=== PATIENT | female | born 1945 | race Caucasian/White ===

== ENCOUNTER 2024-01-15 21:14 | Inpatient (IN) | payer OTHER ==
[2024-01-15] MEDS: ALBUTEROL SO4 2.5/IPRATROPIUM 0.5 INH SOL 3 ML VIAL.NEB. NEB ONE (22:27)
[2024-01-15 22:34] LABS: BASO % 0.6 % (0-2.0); EOS % 1.3 % (0-4.5); HEMATOCRIT 37.4 % (32.4-45.2); HEMOGLOBIN 12.7 GM/dL (10.7-15.3); MCH 29.3 pg (25.7-33.7); MCHC 33.8 g/dl (32.0-36.0); MEAN CELL VOLUME 86.6 fl (80-96); MEAN PLT VOLUME 8.3 fl (7.5-11.1); MONO % 2.9 % (3.8-10.2); NEUT % 87.2 % (42.8-82.8); PLATELET COUNT 439 10^3/uL (134-434); RBC 4.31 M/mm3 (3.60-5.2); RDW 14.4 % (11.6-15.6); VENOUS BASE EXCESS 0.1 mmol/L (-2-2); VENOUS O2 SATURATION 94.2 % (70-80); VENOUS PCO2 26.1 mmHg (38-52); VENOUS PH 7.531 (7.310-7.410); WHITE BLOOD COUNT 18.3 K/mm3 (4.0-10.0)
[2024-01-15 22:45] LABS: INR 0.98 (0.83-1.09); PROTHROMBIN TIME (PATIENT) 11.4 SEC (9.7-13.0)
[2024-01-15 22:47] LABS: ACTIVATED PTT 30.6 SECONDS (25.2-36.5)
[2024-01-15 22:53] LABS: POTASSIUM 3.9 mmol/L (3.5-5.1)
[2024-01-15 22:55] LABS: CALCIUM 9.6 mg/dL (8.5-10.1)
[2024-01-15 22:56] LABS: ALBUMIN 3.7 g/dl (3.4-5.0); BLOOD UREA NITROGEN 10.8 mg/dL (7-18)
[2024-01-15 22:59] LABS: CREATININE 1.1 mg/dL (0.55-1.3)
[2024-01-15 23:00] LABS: BILIRUBIN,TOTAL 0.5 mg/dL (0.2-1)
[2024-01-15 23:33] LABS: EPI CELLS 1 /uL (0-25.1); HYALINE CASTS 0 /uL (0-3.1); URINE APPEARANCE CLEAR; URINE BACTERIA 296 /uL (0-1359); URINE BILIRUBIN NEGATIVE (NEGATIVE); URINE COLOR YELLOW; URINE GLUCOSE (UA) NEGATIVE (NEGATIVE); URINE KETONE NEGATIVE (NEGATIVE); URINE LEUK ESTERASE 3+ (NEGATIVE); URINE NITRITE NEGATIVE (NEGATIVE); URINE PROTEIN NEGATIVE (NEGATIVE); URINE RBC 15 /uL (0-23.9); URINE UROBILINOGEN 0.2 mg/dL (0.2-1.0); URINE WBC 148 /uL (0-25.8)
[2024-01-16 00:05] LABS: N-TERMINAL BNP 421.8 pg/ml (5-450)
[2024-01-16] MEDS: CEFTRIAXONE 1 GM in DEXTROSE 5%-WATER - 100 ML IVPB ONE (01:08)
[2024-01-16] MEDS ORDERED: CEFTRIAXONE 1 GM/50 ML BAG ONE (01:10)
[2024-01-16] MEDS ORDERED: QUEtiapine FUMARATE 25 MG TABLET PO PRN (05:01)
[2024-01-16] MEDS: MELATONIN 5 MG TABLETS PO ONE (05:11)
[2024-01-16] MEDS: LORazepam 0.5 MG TABLET PO ONE (05:11)
[2024-01-16 07:51] LABS: BASO % 0.6 % (0-2.0); EOS % 1.2 % (0-4.5); HEMATOCRIT 36.1 % (32.4-45.2); LYMPH % 13.1 % (8-40); MCH 29.1 pg (25.7-33.7); MCHC 33.2 g/dl (32.0-36.0); MEAN CELL VOLUME 87.7 fl (80-96); MEAN PLT VOLUME 8.9 fl (7.5-11.1); MONO % 5.2 % (3.8-10.2); NEUT % 79.9 % (42.8-82.8); PLATELET COUNT 393 10^3/uL (134-434); RBC 4.12 M/mm3 (3.60-5.2); WHITE BLOOD COUNT 11.1 K/mm3 (4.0-10.0)
[2024-01-16 08:08] LABS: POTASSIUM 3.7 mmol/L (3.5-5.1)
[2024-01-16 08:24] LABS: BLOOD UREA NITROGEN 8.8 mg/dL (7-18)
[2024-01-16] MEDS ORDERED: NIFEdipine E.R 60 MG TABLET PO ONE (09:28)
[2024-01-16] MEDS ORDERED: PANTOPRAZOLE 40 MG TABLET PO ONE (09:28)
[2024-01-16] MEDS ORDERED: ESCITALOPRAM OXALATE 10 MG TABLET ONE (09:28)
[2024-01-16] MEDS ORDERED: propRANOLol HCL 10 MG TABLET ONE (09:29)
[2024-01-16] MEDS: NIFEdipine E.R 60 MG TABLET PO SCH (09:34)
[2024-01-16] MEDS: PANTOPRAZOLE 40 MG TABLET PO SCH (09:34)
[2024-01-16] MEDS: ESCITALOPRAM OXALATE 20 MG TABLET PO SCH (09:34)
[2024-01-16] MEDS ORDERED: ALBUTEROL SO4 2.5/IPRATROPIUM 0.5 INH SOL 3 ML VIAL.NEB. NEB PRN (14:05)
[2024-01-16 16:17] VITALS: BMI 21.7
[2024-01-16] MEDS: BUDESONIDE/FORMETEROL FUMARATE 80/4.5 mcg INHALER IH ONE (16:19)
[2024-01-16] MEDS: MELATONIN 5 MG TABLETS PO SCH (22:10)
[2024-01-16] MEDS: SENNOSIDES 8.6MG TABLET (FP) PO SCH (22:10)
[2024-01-16] MEDS: MIRTAZAPINE 15 MG TABLET (FP) PO SCH (22:10)
[2024-01-16] MEDS: BUDESONIDE/FORMETEROL FUMARATE 80/4.5 mcg INHALER IH SCH (23:15)
[2024-01-17] MEDS ORDERED: ESCITALOPRAM OXALATE 10 MG TABLET ONE (08:59)
[2024-01-17] MEDS: CEFTRIAXONE 1 GM in DEXTROSE 5%-WATER - 50 ML IVPB SCH (09:28)
[2024-01-17] MEDS: ACETAMINOPHEN 1000 MG/100 ML BAG IVPB PRN (22:46)
[2024-01-17] MEDS: ACETAMINOPHEN 325 MG TABLET (FP) PO ONE (23:27)
[2024-01-18 09:00] LABS: BASO % 0.9 % (0-2.0); EOS % 4.4 % (0-4.5); HEMATOCRIT 35.7 % (32.4-45.2); HEMOGLOBIN 12.1 GM/dL (10.7-15.3); LYMPH % 22.4 % (8-40); MCH 29.9 pg (25.7-33.7); MCHC 33.9 g/dl (32.0-36.0); MEAN CELL VOLUME 88.2 fl (80-96); MEAN PLT VOLUME 8.6 fl (7.5-11.1); MONO % 4.2 % (3.8-10.2); NEUT % 68.1 % (42.8-82.8); PLATELET COUNT 378 10^3/uL (134-434); RBC 4.05 M/mm3 (3.60-5.2); RDW 14.3 % (11.6-15.6); WHITE BLOOD COUNT 8.5 K/mm3 (4.0-10.0)
[2024-01-18 09:05] LABS: CALCIUM 8.9 mg/dL (8.5-10.1)
[2024-01-18 09:09] LABS: BLOOD UREA NITROGEN 16.9 mg/dL (7-18)
[2024-01-18] MEDS ORDERED: ESCITALOPRAM OXALATE 10 MG TABLET ONE (09:19)
[2024-01-18] MEDS: CEFPODOXIME PROXETIL 100 MG TABLET PO SCH (15:07)
[2024-01-18] MEDS: ACETAMINOPHEN 325 MG TABLET (FP) PO ONE (22:00)
[2024-01-19 08:36] VITALS: RESP 18
[2024-01-19] MEDS ORDERED: ESCITALOPRAM OXALATE 10 MG TABLET ONE (09:23)
[2024-01-20] MEDS ORDERED: ESCITALOPRAM OXALATE 10 MG TABLET ONE (09:45)
[2024-01-20 10:57] LABS: BASO % 0.8 % (0-2.0); EOS % 3.9 % (0-4.5); HEMOGLOBIN 11.4 GM/dL (10.7-15.3); LYMPH % 14.8 % (8-40); MCH 29.5 pg (25.7-33.7); MCHC 33.4 g/dl (32.0-36.0); MEAN CELL VOLUME 88.1 fl (80-96); MEAN PLT VOLUME 8.4 fl (7.5-11.1); MONO % 4.7 % (3.8-10.2); NEUT % 75.8 % (42.8-82.8); PLATELET COUNT 377 10^3/uL (134-434); RBC 3.86 M/mm3 (3.60-5.2); RDW 14.3 % (11.6-15.6); WHITE BLOOD COUNT 8.6 K/mm3 (4.0-10.0)
[2024-01-20 11:33] LABS: POTASSIUM 4.1 mmol/L (3.5-5.1)
[2024-01-20 11:36] LABS: BLOOD UREA NITROGEN 17.6 mg/dL (7-18); CALCIUM 9.3 mg/dL (8.5-10.1)
[2024-01-21 05:42] VITALS: PULSE 60
[2024-01-21] MEDS ORDERED: ESCITALOPRAM OXALATE 10 MG TABLET ONE (10:07)
[2024-01-21 12:51] VITALS: BP 130/60; TEMP 98.1
== END 2024-01-21 14:06 | disposition home or self-care (01) | DRG 191 ==
LOC: JER 21:14 → JERBED 01-16 01:51 → J6S 01-16 14:25
PROVIDERS: ADMIT Internal Medicine; ATTEND Internal Medicine
DX: J44.1 Chronic obstructive pulmonary disease with (acute) exacerbation (principal); N39.0 Urinary tract infection, site not specified; F03.90 Unspecified dementia, unspecified severity, without behavioral disturbance, psychotic disturbance, mood disturbance, and anxiety; I10 Essential (primary) hypertension; F32.A Depression, unspecified; F25.9 Schizoaffective disorder, unspecified; R09.02 Hypoxemia; W18.30XA Fall on same level, unspecified, initial encounter; Y92.098 Other place in other non-institutional residence as the place of occurrence of the external cause; Y99.9 Unspecified external cause status
CPT/HCPCS: 0241U-QW; 36415; 70450-TC; 70486-TC; 71045-TC-FY; 71250-TC; 72125-TC; 80048; 80053; 81003; 82803; 83880; 84484; 85025; 85379; 85610; 85730; 87040; 87086; 87635; 93005; 93010; 97116-GP; 97162-GP; 99285-25; J0131

== ENCOUNTER 2024-10-05 21:02 | Emergency (ER) | payer OTHER ==
[2024-10-05 21:12] VITALS: BP 130/70; PULSE 82; RESP 18; TEMP 97.8; BMI 28.3
[2024-10-05 22:29] LABS: PH,URINE 6.5 (5.0-8.0); URINE APPEARANCE CLOUDY; URINE BILIRUBIN NEGATIVE (NEGATIVE); URINE COLOR YELLOW; URINE GLUCOSE (UA) NEGATIVE (NEGATIVE); URINE KETONE NEGATIVE (NEGATIVE); URINE LEUK ESTERASE 3+ (NEGATIVE); URINE NITRITE NEGATIVE (NEGATIVE); URINE PROTEIN TRACE (NEGATIVE); URINE UROBILINOGEN 0.2 mg/dL (0.2-1.0)
[2024-10-05 22:52] LABS: EPI CELLS 13.4 /uL (0-25.1); HYALINE CASTS 0.13 /uL (0-3.1); URINE BACTERIA 825.8 /uL (0-1359); URINE RBC 38.9 /uL (0-23.9); URINE WBC 1458.9 /uL (0-25.8)
[2024-10-05] MEDS ORDERED: CEPHALEXIN MONOHYDRATE 500 MG CAPSULE (UD) ONE (23:19)
[2024-10-05] MEDS: CEPHALEXIN MONOHYDRATE 500 MG CAPSULE (UD) PO ONE (23:25)
== END 2024-10-06 02:56 | disposition home or self-care (01) ==
LOC: JER 21:02
DX: N39.0 Urinary tract infection, site not specified (principal); R06.02 Shortness of breath; R05.9 Cough, unspecified
CPT/HCPCS: 71046-TC-FY; 81003; 87086; 93005; 93010; 99285-25

== ENCOUNTER 2025-05-18 14:42 | Inpatient (IN) | payer OTHER ==
[2025-05-18] MEDS ORDERED: DIPHTH,PERTUSS(ACELL),TET 0.5 ML DISP.SYRIN IM ONE (15:31)
[2025-05-18] MEDS ORDERED: ACETAMINOPHEN 500 MG TABLET (FP) ONE (15:34)
[2025-05-18] MEDS: DIPHTH,PERTUSS(ACELL),TET 0.5 ML DISP.SYRIN IM ONE (15:38)
[2025-05-18] MEDS: ACETAMINOPHEN 500 MG TABLET (FP) PO ONE (15:40)
[2025-05-18] MEDS ORDERED: BACITRACIN ZINC 15 GM TUBE TOPICAL OINTMENT ONE (15:47)
[2025-05-18 20:07] LABS: HEMATOCRIT 38.3 % (34.1-44.9); MCHC 31.3 g/dl (32.2-35.5); MEAN CELL VOLUME 88.9 fl (79.4-94.8); MEAN PLT VOLUME 10.2 fl (9.4-12.3); PLATELET COUNT 420 x10^3/uL (182-369); RDW 13.7 % (12.4-16.6)
[2025-05-18 20:14] LABS: INR 1.01 (0.83-1.09)
[2025-05-18 20:17] LABS: ACTIVATED PTT 29.2 SECONDS (25.2-36.5)
[2025-05-18 20:55] LABS: POTASSIUM 4.1 mmol/L (3.5-5.1)
[2025-05-18 20:57] LABS: CALCIUM 9.3 mg/dL (8.5-10.1)
[2025-05-18 20:58] LABS: ALBUMIN 3.4 g/dl (3.4-5.0); BLOOD UREA NITROGEN 13.4 mg/dL (7-18)
[2025-05-18 21:02] LABS: BILIRUBIN,TOTAL 0.4 mg/dL (0.2-1); TOT PROT 7.1 g/dl (6.4-8.2)
[2025-05-18] MEDS ORDERED: ALBUTEROL SO4 HFA INHALER IH PRN (21:38)
[2025-05-18] MEDS: ACETAMINOPHEN 500 MG TABLET (FP) PO PRN (22:46)
[2025-05-18] MEDS: SENNOSIDES 8.6MG TABLET (FP) PO SCH (22:46)
[2025-05-18] MEDS: MELATONIN 5 MG TABLETS PO SCH (22:46)
[2025-05-18] MEDS: MIRTAZAPINE 15 MG TABLET (FP) PO SCH (22:46)
[2025-05-18] MEDS: propRANOLol HCL 10 MG TABLET PO SCH (23:27)
[2025-05-18] MEDS: BUDESONIDE/FORMETEROL FUMARATE 80/4.5 mcg INHALER IH SCH (23:28)
[2025-05-19 08:52] LABS: HEMATOCRIT 36.3 % (34.1-44.9); HEMOGLOBIN 11.3 g/dL (11.2-15.7); MCHC 31.1 g/dl (32.2-35.5); MEAN CELL VOLUME 88.8 fl (79.4-94.8); MEAN PLT VOLUME 10.5 fl (9.4-12.3); PLATELET COUNT 363 x10^3/uL (182-369); RDW 13.9 % (12.4-16.6)
[2025-05-19 09:10] LABS: POTASSIUM 3.8 mmol/L (3.5-5.1)
[2025-05-19 09:13] LABS: CALCIUM 9.3 mg/dL (8.5-10.1)
[2025-05-19 09:14] LABS: BLOOD UREA NITROGEN 12.3 mg/dL (7-18); MAGNESIUM 2.2 mg/dL (1.8-2.4)
[2025-05-19 09:17] LABS: CREATININE 0.8 mg/dL (0.55-1.3)
[2025-05-19] MEDS: PANTOPRAZOLE 20 MG TABLET PO SCH (10:32)
[2025-05-19] MEDS: ESCITALOPRAM OXALATE 20 MG TABLET PO SCH (10:32)
[2025-05-19] MEDS: NIFEdipine E.R 60 MG TABLET PO SCH (10:32)
[2025-05-19] MEDS: ERGOCALCIFEROL 8,000 UNITS/ML DROPSBTL PO SCH (12:15)
[2025-05-20 09:15] LABS: ABSOLUTE IMMATURE GRANULOCYTES 0.01 x10^3/uL (0.0-0.031); BASOPHILS # 0.06 x10^3/uL (0.01-0.08); EOSINOPHIL % 4.5 % (0.7-5.8); EOSINOPHILS # 0.31 x10^3/uL (0.04-0.36); HEMATOCRIT 33.4 % (34.1-44.9); HEMOGLOBIN 10.4 g/dL (11.2-15.7); MCHC 31.1 g/dl (32.2-35.5); MEAN CELL VOLUME 88.4 fl (79.4-94.8); MONOCYTE % 7.3 % (4.7-12.5); PLATELET COUNT 330 x10^3/uL (182-369)
[2025-05-20 09:41] LABS: POTASSIUM 3.8 mmol/L (3.5-5.1)
[2025-05-20 09:42] LABS: ALBUMIN 2.8 g/dl (3.4-5.0); BLOOD UREA NITROGEN 12.9 mg/dL (7-18)
[2025-05-20 09:43] LABS: CALCIUM 9.3 mg/dL (8.5-10.1); MAGNESIUM 2.2 mg/dL (1.8-2.4)
[2025-05-20 09:47] LABS: CREATININE 0.9 mg/dL (0.55-1.3)
[2025-05-20 09:48] LABS: BILIRUBIN,TOTAL 0.5 mg/dL (0.2-1); TOT PROT 5.8 g/dl (6.4-8.2)
[2025-05-21 10:04] VITALS: RESP 18
[2025-05-21 14:50] VITALS: BMI 24.4
[2025-05-22 13:30] LABS: ABSOLUTE IMMATURE GRANULOCYTES 0.01 x10^3/uL (0.0-0.031); BASOPHILS # 0.06 x10^3/uL (0.01-0.08); EOSINOPHIL % 4.8 % (0.7-5.8); HEMATOCRIT 37.7 % (34.1-44.9); HEMOGLOBIN 11.9 g/dL (11.2-15.7); MCHC 31.6 g/dl (32.2-35.5); MEAN CELL VOLUME 89.1 fl (79.4-94.8); MEAN PLT VOLUME 10.1 fl (9.4-12.3); MONOCYTE # 0.31 x10^3/uL (0.24-0.86); MONOCYTE % 3.7 % (4.7-12.5); PLATELET COUNT 388 x10^3/uL (182-369)
[2025-05-22 13:53] LABS: BLOOD UREA NITROGEN 10.7 mg/dL (7-18); CALCIUM 9.4 mg/dL (8.5-10.1)
[2025-05-22 13:57] LABS: CREATININE 0.8 mg/dL (0.55-1.3)
[2025-05-22 17:57] LABS: URINE APPEARANCE CLOUDY; URINE BILIRUBIN NEGATIVE (NEGATIVE); URINE COLOR YELLOW; URINE GLUCOSE (UA) NEGATIVE (NEGATIVE); URINE KETONE TRACE (NEGATIVE)
[2025-05-22 17:58] LABS: EPI CELLS 5.5 /uL (0-25.1); HYALINE CASTS 1.25 /uL (0-3.1); PH,URINE 7.5 (5.0-8.0); URINE BACTERIA 107.9 /uL (0-1359); URINE LEUK ESTERASE 3+ (NEGATIVE); URINE NITRITE NEGATIVE (NEGATIVE); URINE PROTEIN 30 (NEGATIVE); URINE RBC 57.1 /uL (0-23.9)
[2025-05-25] MEDS: MULTIVITAMINS (DAILY MVI) TABLET (FP) PO SCH (10:36)
[2025-05-25 14:31] VITALS: PULSE 63; TEMP 98.8
[2025-05-25 14:46] VITALS: BP 131/58
== END 2025-05-25 14:53 | DRG 552 ==
LOC: JER 14:42 → JERBED 18:58 → J5S 21:51
PROVIDERS: ADMIT Hospitalist; ATTEND Internal Medicine
PROC: 08QNXZZ Repair Right Upper Eyelid, External Approach (ICD-10-PCS; principal; 2025-05-18)
DX: S12.400A Unspecified displaced fracture of fifth cervical vertebra, initial encounter for closed fracture (principal); I10 Essential (primary) hypertension; F03.90 Unspecified dementia, unspecified severity, without behavioral disturbance, psychotic disturbance, mood disturbance, and anxiety; S01.119A Laceration without foreign body of unspecified eyelid and periocular area, initial encounter; F25.9 Schizoaffective disorder, unspecified; W19.XXXA Unspecified fall, initial encounter; Y93.9 Activity, unspecified; Y92.89 Other specified places as the place of occurrence of the external cause; Y99.9 Unspecified external cause status
CPT/HCPCS: 36415; 70450-TC; 70486-TC; 71045-TC-FY; 72040-TC; 72050-TC-FY; 72125-TC; 72141-TC; 72170-TC-FY; 73560-TC-RT-FY; 80048; 80053; 81003; 82308; 82962; 83735; 85025; 85027; 85610; 85651; 85730; 86140; 86850; 86900; 86901; 87086; 87635; 90715; 97116-GP; 97161-GP; 99285-25